=== PATIENT | male | born 1985 | race Caucasian/White ===

== ENCOUNTER 2022-07-12 11:22 | Emergency (ER) | payer OTHER, SELFPAY ==
[2022-07-12 11:28] VITALS: BP 161/100; PULSE 91; RESP 18; TEMP 36.7; O2SAT 100
--- NOTE | 2022-07-12 11:48 | CTR_ITS ---
PROCEDURE INFORMATION: Exam: CT Cervical Spine Without Contrast Exam date and time: 07/12/2022 12:07 PM Age: 37 years old Clinical indication: Injury or trauma; Fall; Blunt trauma; Additional info: Neck injury from loc and fall to floor TECHNIQUE: Imaging protocol: Computed tomography of the cervical spine without contrast. Axial, coronal and sagittal reformatted images were created and reviewed. Radiation optimization: All CT scans at this facility use at least one of these dose optimization techniques: automated exposure control; mA and/or kV adjustment per patient size (includes targeted exams where dose is matched to clinical indication); or iterative reconstruction. REPORTING DATA: Count of CT and Cardiac NM exams in prior 12 months: This patient has received 0 known CTs and 0 known cardiac nuclear medicine studies in the 12 months prior to the current study. COMPARISON: No relevant prior studies available. RADIATION DOSE METRICS: Total DLP (mGy-cm): 269.1 FINDINGS: Bones/joints: Straightening of the normal cervical lordosis. No CT evidence of acute fracture, dislocation or subluxation. Alignment anatomic. Mild levoscoliosis. Vertebral body heights maintained. Mild multilevel degenerative changes, characterized by disc space narrowing, osteophytosis and uncovertebral and facet joint hypertrophy. Mild multilevel spinal canal and neural foraminal narrowing. Thyroid gland: 2.2 cm low-density right thyroid nodule. Lungs: Right upper lobe calcified granuloma. Soft tissues: Grossly unremarkable. CT/CT cervical spin wo con* [id number] IMPRESSION: 1[address] No CT evidence of acute cervical spine traumatic injury. 2. 2.2 cm low-density right thyroid nodule. Follow-up ultrasound is suggested. 3. Additional findings, as above.
--- NOTE | 2022-07-12 11:48 | CTR_ITS ---
PROCEDURE INFORMATION: Exam: CT Head Without Contrast Exam date and time: 07/12/2022 12:07 PM Age: 37 years old Clinical indication: Injury or trauma; Fall; Blunt trauma (contusions or hematomas); Patient HX: PT reports he fell on 06/24/22 and is having concussion like symptoms; Additional info: Loc and fell to floor and hit head, concussion symptoms TECHNIQUE: Imaging protocol: Computed tomography of the head without contrast. Axial, coronal and sagittal reformatted images were created and reviewed. Radiation optimization: All CT scans at this facility use at least one of these dose optimization techniques: automated exposure control; mA and/or kV adjustment per patient size (includes targeted exams where dose is matched to clinical indication); or iterative reconstruction. REPORTING DATA: Count of CT and Cardiac NM exams in prior 12 months: This patient has received 0 known CTs and 0 known cardiac nuclear medicine studies in the 12 months prior to the current study. COMPARISON: No relevant prior studies available. RADIATION DOSE METRICS: Total DLP (mGy-cm): 1077 FINDINGS: Brain: No CT evidence of acute intracranial hemorrhage or acute territorial infarction. No significant mass effect or midline shift. Basal cisterns patent. Cerebral ventricles: Normal in size and configuration. Paranasal sinuses: Mild ethmoid mucosal thickening. No air-fluid levels. Mastoid air cells: Grossly unremarkable. Bones/joints: No acute osseous abnormality. Soft tissues: Grossly unremarkable. CT/CT head wo con* [id number]: 1[address] No CT evidence of acute intracranial pathology. 2. Additional findings, as above.
--- NOTE | 2022-07-12 12:05 | W.ED.HA ---
HPI - Headache General: Chief Complaint: Headache Stated Complaint: WC/vision blurry/headpain Time Seen by Provider: 07/12/22 11:39 History of Present Illness: Patient is a 37-year-old male that comes to the ED with headache and neck pain. Patient says symptoms started a little over a week ago after a workplace injury occurred. 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 It knocked the patient out and he was found down on the ground at work with positive LOC. He was then taken to [facility] emergency department and they scanned his abdomen and x-rayed his right wrist and they found no acute findings. No scans were done of his head or neck. Since injury he has been having symptoms of bilateral neck pain worsens with any range of motion of the neck. He rates his neck pain currently a 9 out of 10. His headache currently is mild. He also is having some brain fog, blurry vision and nausea since injury. Denies any numbness/tingling or weakness out of his body or face. Denies any new or recent injuries. Associated symptoms: Reports confusion (Brain fog) and nausea; Deny chest pain, fever(s), rash or vomiting Review of Systems Const: Denies: fever(s), chills or fatigue Eyes: Reports: blurry vision; Denies: change in vision or eye discomfort ENMT: Denies: throat pain, odynophagia, nasal discharge or nasal congestion Card: Denies: chest pain, palpitations, edema, swelling of feet/ankles, dyspnea on exertion or orthopnea Resp: Denies: dyspnea, productive cough or non-productive cough GI: Reports: nausea; Denies: abdominal pain, vomiting, diarrhea, constipation or hematochezia : Denies: flank pain, difficulty urinating, dysuria or hematuria Musc: Reports: neck pain; Denies: back pain or extremity swelling Skin/Breast: Denies: rash or new lesions Neuro: Reports: headache(s) and confusion (Brain fog); Denies: numbness in extremities or weakness in extremities PFS ED PFSH: Medical History JACKIE (generalized anxiety disorder) MDD (major depressive disorder) Problems related to lack of adequate sleep Social History (Updated 11/10/19 @ 10:19 by Aggie Slaughter LPN) Smoking and tobacco status: current every day smoker e-cigarettes E-Cigarette Details: vaporizer device E-cig/vape details: 3% considering going to 0% Quit status (tobacco): considering quitting Second hand smoke exposure: Yes Current gender identity: Male Physical Exam Const: COMMON NORMALS: patient oriented x3 HENMT: COMMON NORMALS: normocephalic HEAD & SCALP: normocephalic MOUTH: Normal oral and palatal mucosa present THROAT: posterior oropharynx normal and uvula midline Eye: COMMON NORMALS: Equal, round and reactive pupils present and EOMs intact bilaterally GENERAL EYE: appearance normal, both eyes and all related structures PUPIL: Yes Equal, round and reactive pupils present Neck/C-Spine: COMMON NORMALS: supple GENERAL: Yes normal visual inspection CERVICAL SPINE: No Cervical spine tenderness and Yes Paracervical muscle tenderness bilateral Lymph: LYMPHATIC: no lymphadenopathy noted Resp: COMMON NORMALS: normal respiratory effort, No retractions, No use of accessory muscles and clear to auscultation bilaterally AUSCULTATION: clear to auscultation bilaterally Cardio: COMMON NORMALS: regular rate, regular rhythm, S1 normal heart sound present, S2 normal heart sound present, No gallops present (Cardio), No clicks present (Cardio), No murmurs present (Cardio) and Peripheral pulses 2+ throughout RATE: regular rate RHYTHM: regular rhythm HEART SOUNDS: S1 normal heart sound present and S2 normal heart sound present PERIPHERAL PULSES: Peripheral pulses 2+ throughout GI: COMMON NORMALS: Normal to inspection, nondistended, normoactive bowel sounds present, Soft to palpation, non-tender and no masses PALPATION: Yes Soft to palpation : COMMON NORMALS: Yes no CVA tenderness BLADDER/KIDNEY EXAM: Yes no CVA tenderness Back/Pelvis: COMMON NORMALS: no CVA tenderness Extremity: GENERAL: Yes normal exam except as noted Neuro: COMMON NORMALS: patient oriented x3, CN's II-XII intact bilaterally, moves all extremities, no focal motor deficits and no sensory deficits noted SENSORY EXAM: Yes extremities (intact) MOTOR EXAM: 5/5 motor strength present throughout Skin: COMMON NORMALS: no rashes or lesions noted GENERAL SKIN EXAM: no rashes or lesions noted and dry skin Course Vital Signs: Vital signs: Vital Signs Temperature 98.1 F 07/12/22 11:28 Pulse Rate 79 07/12/22 12:28 Respiratory Rate 18 04/30/23 12:28 Blood Pressure 131/94 07/12/22 12:30 Pulse Oximetry 100 07/12/22 12:28 Oxygen Delivery Me thod Room Air 07/12/22 12:28 MDM - Headache Medical Decision Making Patient is a 37-year-old male that comes to the ED with headache and neck pain. Patient says symptoms started a little over a week ago after a workplace injury occurred. 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 It knocked the patient out and he was found down on the ground at work with positive LOC. He was then taken to [facility] emergency department and they scanned his abdomen and x-rayed his right wrist and they found no acute findings. No scans were done of his head or neck. Since injury he has been having symptoms of bilateral neck pain worsens with any range of motion of the neck. He rates his neck pain currently a 9 out of 10. His headache currently is mild. He also is having some brain fog, blurry vision and nausea since injury. Denies any numbness/tingling or weakness out of his body or face. Denies any new or recent injuries. Vitals are stable. Neuro exam shows no deficits. He has some bilateral paracervical muscle tenderness but rest of exam is benign. CT of head shows no acute findings. CT cervical spine shows no acute findings of spine, but did notate a right thyroid nodule that they recommended further outpatient imaging via ultrasound. I told patient about CT findings including the finding of the thyroid nodule. I told him to contact his primary care doctor to set up an outpatient ultrasound for further evaluation of thyroid nodule. Patient was given a dose of Toradol and muscle relaxer here in the ED. He was stable for discharge home and diagnosed with minor head injury, neck pain and right thyroid nodule. Strict return to ED precautions given. He was sent home with a prescription for ibuprofen 800 mg and muscle relaxer. Patient understood and agreed with plan. Lab Data Radiology Impressions Cervical Spine CT 07/12/22 11:[address]: [address] evidence of acute cervical spine traumatic injury. 2. 2.2 cm low-density right thyroid nodule. Follow-up ultrasound is suggested. 3. Additional findings, as above. Head CT 07/12/22 11:[address]: 1[address] evidence of acute intracranial pathology. 2. Additional findings, as above. Discharge Plan Discharge Patient Disposition: Home Clinical Impression: Right thyroid nodule, Neck pain Minor head injury Qualifiers: Encounter type: initial encounter Qualified Code(s): S09.90XA - Unspecified injury of head, initial encounter Condition: Stable Prescriptions: New methocarbamol 750 mg tablet 750 mg PO TID PRN (Reason: neck muscle spasms and pain) Qty: 20 0RF ibuprofen 800 mg tablet 800 mg PO Q8H PRN (Reason: pain) Qty: 30 0RF No Action eszopiclone [Lunesta] 2 mg tablet 2 mg PO .qhs 30 Days Qty: 30 3RF sertraline [Zoloft] 100 mg tablet 150 mg PO DAILY 30 Days Qty: 45 3RF Discharge Orders: Discharge ED (Routine); Ordered 07/12/22 Ordered By: Derick Ashby Discharge Diet: Regular Discharge Activity: Increase activity as tolerated Patient Instructions: Concussion/Head Injury - Adult Activity Restrictions/Additional Instructions: Follow-up with medical provider as directed. Follow-up with your PCP for further outpatient evaluation of right thyroid nodule. Continue taking all home medications as previously prescribed. Return to the ER or your medical provider if condition worsens. Please read and understand discharge instructions. Thank you for choosing [facility] for your healthcare needs today. Please realize this is an emergency room and that we are providing you with a medical screening exam and this may not be complete and all inclusive of all the testing and or work up that you may need to determine your ailment or severity of your illness. It is very important that you follow up as instructed or that you return to the Emergency Department should you have concerns or if your condition changes or worsens in any way. Coding Level of Care Code ED [employer] for Kenzie Yeager
[2022-07-12] MEDS: cyclobenzaprine 10 mg Tablet PO (12:22)
[2022-07-12] MEDS: ketorolac 60 mg/2 mL INJ IM (12:22)
[2022-07-12 12:28] VITALS: PULSE 79; RESP 18; O2SAT 100
[2022-07-12 12:30] VITALS: BP 131/94
--- NOTE | 2022-07-15 14:21 | DCPLANNER ---
ramp manager called patient due to no primary care physician - no answer at this time.
== END 2022-07-12 13:20 | disposition home or self-care (01) ==
PROVIDERS: Emergency Provider Physician Assistant
DX: S09.8XXA Other specified injuries of head, initial encounter (principal); E04.1 Nontoxic single thyroid nodule; F17.290 Nicotine dependence, other tobacco product, uncomplicated; W20.8XXA Other cause of strike by thrown, projected or falling object, initial encounter; Y99.0 Civilian activity done for income or pay
CPT/HCPCS: 70450; 72125; 96372; 99284; J1885

== ENCOUNTER 2023-03-11 11:49 | Outpatient (CLI) | payer MEDICAID, SELFPAY ==
--- NOTE | 2023-03-11 11:54 | USR_ITS ---
PROCEDURE INFORMATION: Exam: US Soft Tissue Head and Neck, Thyroid Exam date and time: 03/11/2023 12:09 PM Age: 37 years old Clinical indication: Condition or disease; Other: Nodule; Additional info: Thyroid nodule, PT having mri too TECHNIQUE: Imaging protocol: Real-time ultrasound scan of the neck with image documentation. Exam focused on the thyroid. COMPARISON: CT head wo con* [id number] 07/12/2022 12:07 PM FINDINGS: Right lobe is unremarkable in overall size measuring 5.3 x 1.7 x 1.5 cm. 2.3 x 1.7 x 1.3 cm circumscribed oval shaped isoechoic solid nodule lower pole, probably benign (TR 3) Remainder of the right lobe is unremarkable. Left lobe is unremarkable in overall size measuring 4.8 x 1.6 x 1.4 cm. Few tiny hypoechoic nodules likely benign based on size criteria. Thyroid isthmus is not thickened measuring 3 mm. Mildly enlarged oval-shaped lymph nodes bilaterally largest which measures 2.2 x 0.8 x 1.8 cm with central fatty hilum favoring benign etiology. US/US thyroid [id number] IMPRESSION: 2.3 x 1.7 x 1.3 cm probably benign solid nodule right lobe (TR 3)TI-RADS category TR3, Mildly Suspicious. Follow-up thyroid ultrasound at 1, 3, and 5 years is recommended. (Reference: Sana) REFERENCES: Sana FN, Leora WD, Sukhi CRUMP et al. ACR Thyroid Imaging, Reporting and Data System (TI-RADS): White Paper of the ACR TI-RADS Committee. J Am Nataly Radiol. 2017; 14: 587-595.
--- NOTE | 2023-03-11 13:45 | MR_ITS ---
WS: [id number] MRI CERVICAL SPINE NONCONTRAST TECHNIQUE: Sagittal T1, T2 and STIR imaging. Axial T2, gradient, and fiesta imaging. CLINICAL INFORMATION: cervical COMPARISON: None. FINDINGS: Straightening of the normal cervical lordosis. Cord signal is normal. No high-grade central canal wilian nosis. Disc bulging worse at C3-C4. C2-C3: Normal. C3-C4: Mild disc osteophyte complex with endplate ridging. Moderate bilateral bony foraminal narrowin g. Mild facet arthropathy with uncovertebral joint hypertrophy. C4-C5: Minimal disc osteophytic ridging. Mild LEFT and no significant RIGHT foraminal narrowing. Mild arthropathy. C5-C6: Disc osteophyte complex with endplate ridging. Moderate to severe RIGHT bony foraminal narrowi ng. Spinal canal is patent. Mild facet arthropathy. C6-C7: Mild disc osteophyte complex with endplate ridging. Mild RIGHT and no significant LEFT foramin al narrowing. Mild arthropathy. C7-T1: Normal. . Visualized brain stem structures: Normal. Prevertebral soft tissues: Normal. IMPRESSION: 1. Straightening of the normal cervical lordosis. Cord signal is normal. 2. Disc osteophyte complex C3-C4 with slight effacement of the ventral thecal sac. Moderate bilatera l bony foraminal narrowing. 3. Moderate to severe RIGHT C5-6 bony foraminal narrowing. 4. Mild RIGHT C6-7 bony foraminal narrowing.
== END 2023-03-11 11:50 | disposition home or self-care (01) ==
PROVIDERS: PCP Family Medicine; Visit Provider Family Medicine
DX: M54.2 Cervicalgia (principal); E04.1 Nontoxic single thyroid nodule; M25.78 Osteophyte, vertebrae; M48.02 Spinal stenosis, cervical region; M53.82 Other specified dorsopathies, cervical region
CPT/HCPCS: 72141; 76536

== ENCOUNTER → 2023-05-12 09:36 | Outpatient (BNVA) | payer MEDICAID, SELFPAY | PROVIDERS: PCP Family Medicine; Referring Provider Family Medicine; Visit Provider Internal Medicine | DX: E04.1 Nontoxic single thyroid nodule (principal) | CPT/HCPCS: 36415; 84439; 84443; 84480 ==